=== PATIENT | female | born 2000 | race Caucasian/White ===

== ENCOUNTER 2022-04-12 10:35 | Outpatient (CLI) | payer MEDICAID, SELFPAY ==
[2022-04-12 13:32] LABS: Albumin* 4.9 g/dL (3.3-5.0); Chloride* 98 mmol/L (96-114)
[2022-04-12 13:33] LABS: Potassium* 4.3 mmol/L (3.6-5.1); Sodium* 137 mmol/L (135-149)
[2022-04-12 13:35] LABS: Alkaline Phosphatase* 94 U/L (40-150); Aspartate Amino Transferase* 20 U/L (12-35); Bilirubin Total* 0.6 mg/dL (0.1-1.5); Blood Urea Nitrogen* 14 mg/dL (5-24); Carbon Dioxide* 28 mmol/L (20-32); Creatinine* 0.8 mg/dL (0.5-1.5); Estimated Glomerular Filt Rate 107 ml/min; Total Protein* 8.2 g/dL (6.0-8.3)
[2022-04-12 13:36] LABS: Alanine Aminotransferase* 18 U/L (4-35); Calcium* 9.6 mg/dL (8.4-10.6); Glucose* 100 mg/dL (60-115)
[2022-04-12 13:50] LABS: Vitamin D 25 Hydroxy* 38 ng/mL (30-80)
== END 2022-04-12 10:36 | disposition home or self-care (01) ==
PROVIDERS: Visit Provider Nurse Practitioner Family
DX: F32.A Depression, unspecified (principal); F41.9 Anxiety disorder, unspecified; R45.86 Emotional lability; Z79.899 Other long term (current) drug therapy; Z13.29 Encounter for screening for other suspected endocrine disorder; Z13.1 Encounter for screening for diabetes mellitus
CPT/HCPCS: 80053; 82306; 84443

== ENCOUNTER 2024-09-20 14:29 | Outpatient (CLI) | payer BC, SELFPAY ==
[2024-09-26 16:39] LABS: Pap Test Reviewed by Path Done
== END 2024-09-20 14:30 | disposition home or self-care (01) ==
LOC: NFLDREF 14:30
PROVIDERS: Visit Provider Obstetrics & Gynecology
DX: N89.8 Other specified noninflammatory disorders of vagina (principal); Z12.4 Encounter for screening for malignant neoplasm of cervix
CPT/HCPCS: 87624; 87625; 88141; 88142

== ENCOUNTER 2024-11-08 08:25 | Outpatient (CLI) | payer BC, SELFPAY ==
[2024-11-08 14:07] LABS: Albumin* 4.5 g/dL (3.3-5.0); Chloride* 101 mmol/L (96-114)
[2024-11-08 14:08] LABS: Potassium* 4.5 mmol/L (3.6-5.1); Sodium* 139 mmol/L (135-149)
[2024-11-08 14:10] LABS: Anion Gap 6 mEq/L (7-15); Blood Urea Nitrogen* 10 mg/dL (5-24); Carbon Dioxide* 32 mmol/L (20-32); Cholesterol* 213 mg/dL (90-199); Creatinine* 0.9 mg/dL (0.5-1.5); Estimated Glomerular Filt Rate 92 ml/min
[2024-11-08 14:11] LABS: Alanine Aminotransferase* 23 U/L (4-35); Alkaline Phosphatase* 79 U/L (40-150); Aspartate Amino Transferase* 23 U/L (12-35); Bilirubin Direct* 0.3 mg/dL (0.0-0.5); Bilirubin Total* 0.7 mg/dL (0.1-1.5); Calcium* 9.8 mg/dL (8.4-10.6); Glucose* 97 mg/dL (60-115); HDL Cholesterol* 62 mg/dL (>=50); LDL Cholesterol Calculated 133 mg/dL (<100); Total Protein* 7.7 g/dL (6.0-8.3); Triglycerides* 92 mg/dL (40-149)
[2024-11-08 14:35] LABS: Hemoglobin A1C* 5.4 % (0-5.6)
== END 2024-11-08 08:26 | disposition home or self-care (01) ==
LOC: NPINS 08:31
PROVIDERS: Visit Provider Nurse Practitioner Gerontology
DX: Z79.899 Other long term (current) drug therapy (principal)
CPT/HCPCS: 80048; 80061; 80076; 83036